=== PATIENT | male | born 1990 | race Caucasian/White ===

== ENCOUNTER 2019-02-16 16:49 | Emergency (ER) | payer BC ==
[2019-02-16] MEDS ORDERED: cefTRIAXone 500 MG in Lidocaine 1% 2 ML IM ONE (17:11)
[2019-02-16] MEDS ORDERED: Azithromycin 250 MG Tab PO STA (17:12)
--- NOTE | 2019-02-16 17:18 | EDM.PDOC ---
ED HPI GENERAL MEDICAL PROBLEM - General Chief Complaint: Genitourinary Problem Stated Complaint: STD TESTING Time Seen by Provider: 02/16/19 16:51 Source of Information: Reports: Patient History Limitations: Reports: No Limitations - History of Present Illness INITIAL COMMENTS - FREE TEXT/NARRATIVE: HISTORY AND PHYSICAL: History of present illness: Patient is a 28-year-old male who presents to the ED today with concern of penile discharge and burning with urination. Patient states he did have unprotected sex one week ago with a new partner. Patient states 2 days after the unprotected sex he began to notice some penile discharge that he states is white in color. Patient states that he also has started having burning with urination over the past few days. Patient states he has not taken anything for his symptoms. Patient denies any other symptoms or concerns. Patient denies fever, chills, chest pain, shortness of breath, or cough. Denies headache, neck stiff ness, change in vision, syncope, or near syncope. Denies nausea, vomiting, abdominal pain, diarrhea, constipation. Has not noted any blood in urine or stool. Patient has been eating and drinking appropriately. Review of systems: As per history of present illness and below otherwise all systems reviewed and negative. Past medical history: As per history of present illness and as reviewed below otherwise noncontributory. Surgical history: As per history of present illness and as reviewed below otherwise noncontributory. Social history: See social history for further information Family history: As per history of present illness and as reviewed below otherwise noncontributory. Physical exam: General: Patient is alert, oriented, and in no acute distress. Patient sitting comfortably on exam table. HEENT: Atraumatic, normocephalic, pupils equal and reactive bilaterally, negative for conjunctival pallor or scleral icterus, mucous membranes moist, TMs normal bilaterally, throat clear, neck supple, nontender, trachea midline. No drooling or trismus noted. No meningeal signs. No hot potato voice noted. Lungs: Clear to auscultation, breath sounds equal bilaterally, chest nontender. Heart: S1S2, regular rate and rhythm without overt murmur Abdomen: Soft, nondistended, nontender. Negative for masses or hepatosplenomegaly. Negative for costovertebral tenderness. Pelvis: Stable nontender. Genitourinary: Deferred. Rectal: Deferred. Skin: Intact, warm, dry. No lesions or rashes noted. Extremities: Atraumatic, negative for cords or calf pain. Neurovascular unremarkable. Neuro: Awake, alert, oriented. Cranial nerves II through XII unremarkable. Cerebellum unremarkable. Motor and sensory unremarkable throughout. Exam nonfocal. Notes: Dr. Wyman verbally involved in patient care. Discussed with patient that if he does desire full STD screening, to either get established with his primary care provider or to follow-up at the [facility]. Discussed the importance for follow-up with primary care provider. Voices understanding and is agreeable to plan of care. Denies any further questions or concerns at this time. Diagnostics: UA, gonorrhea and chlamydia Therapeutics: Rocephin, azithromycin, Pyridium Prescription: Pyridium Impression: Penile discharge Dysuria H/O high risk sexual behavior Plan: 1. If you desire full STD screening, you can get this done at [facility] or at follow up with your primary care provider. 2. Alternate ibuprofen and Tylenol as directed for pain and discomfort. 3. Follow up with her primary care provider as discussed. Return to the ED as needed and as discussed. Definitive disposition and diagnosis as appropriate pending reevaluation and review of above. Penis Pain Score (Numeric/FACES): 7 - Related Data Allergies Allergy/AdvReac Type Severity Reaction Status Date / Time zolpidem [From Ambien] Allergy Anxiety Verified 02/16/19 17:05 Home Meds: Home Meds Primidone 50 mg PO ASDIRECTED 02/16/19 [History] clonazePAM [Klonopin] 1 mg PO ASDIRECTED 02/16/19 [History] Past Medical History - Past Health History Medical/Surgical History: Denies Medical/Surgical History Psychiatric History: Reports: Anxiety, Depression - Infectious Disease History Infectious Disease History: Reports: None Social & Family History - Family History Family Medical History: Noncontributory - Tobacco Use Smoking Status *Q: Never Smoker Second Hand Smoke Exposure: No - Caffeine Use Caffeine Use: Reports: Coffee - Recreational Drug Use Recreational Drug Use: No ED ROS GENERAL - Review of Systems Review Of Systems: ROS reveals no pertinent complaints other than HPI. ED EXAM, GENERAL - Physical Exam Exam: See Below (See dictation) Course - Vital Signs Last Recorded V/S: Last Vital Signs Temp 98.6 F 02/16/19 17:07 Pulse 101 H 02/16/19 17:07 Resp 16 02/16/19 17:07 BP 167/86 H 02/16/19 17:07 Pulse Ox 97 02/16/19 17:07 - Orders/Labs/Meds Orders: Active Orders 24 hr Category Date Time Status CHLAMYDIA AND GONORRHEA BY TMA Stat Lab 02/16/19 17:10 Received CULTURE URINE [RM] Stat Lab 02/16/19 17:10 Received Labs: Laboratory Tests 02/16/19 Range/Units 17:10 Urine Color YELLOW Urine Appearance CLEAR Urine pH 7.0 (5.0-8.0) Ur Specific [place] <= 1.005 (1.001-1.035) Urine Protein NEGATIVE (NEGATIVE) mg/dL Urine Glucose (UA) NEGATIVE (NEGATIVE) mg/dL Urine Ketones NEGATIVE (NEGATIVE) mg/dL Urine Occult Blood TRACE-INTACT H (NEGATIVE) Urine Nitrite NEGATIVE (NEGATIVE) Urine Bilirubin NEGATIVE (NEGATIVE) Urine Urobilinogen 0.2 (<2.0) EU/dL Ur Leukocyte Esterase SMALL H (NEGATIVE) Urine RBC 0-2 (0-2/HPF) Urine WBC 5-10 (0-5/HPF) Ur Epithelial Cells FEW (NONE-FEW) Urine Bacteria FEW (NEGATIVE) Meds: Medications Discontinued Medications Generic Name Dose Route Start Last Admin Trade Name Cristiane PRN Reason Stop Dose Admin Azithromycin 1,000 mg 02/16/19 17:12 02/16/19 17:30 Zithromax PO 02/16/19 17:13 1,000 mg NOW STA Administration Ceftriaxone Sodium 500 mg/ 2 mls @ 2 mls/sec 02/16/19 17:11 02/16/19 17:30 Lidocaine HCl IM 02/16/19 17:12 2 mls/sec ONETIME ONE Administration Phenazopyridine HCl 200 mg 02/16/19 17:36 Pyridium PO 02/16/19 17:37 ONETIME ONE Departure - Departure Time of Disposition: 17:55 Disposition: Home, Self-Care 01 Clinical Impression: Dysuria, Penile discharge High risk sexual behavior Qualifiers: High risk sexual behavior type: unspecified Qualified Code(s): Z72.51 - High risk heterosexual behavior - Discharge Information Referrals: King Hay MD [Primary Care Provider] - Forms: ED Department Discharge Additional Instructions: The following information is given to patients seen in the emergency department who are being discharged to home. This information is to outline your options for follow-up care. We provide all patients seen in our emergency department with a follow-up referral. The need for follow-up, as well as the timing and circumstances, are variable depending upon the specifics of your emergency department visit. If you don't have a primary care physician on staff, we will provide you with a referral. We always advise you to contact your personal physician following an emergency department visit to inform them of the circumstance of the visit and for follow-up with them and/or the need for any referrals to a consulting specialist. The emergency department will also refer you to a specialist when appropriate. This referral assures that you have the opportunity for follow-up care with a specialist. All of these measure are taken in an effort to provide you with optimal care, which includes your follow-up. Under all circumstances we always encourage you to contact your private physician who remains a resource for coordinating your care. When calling for follow-up care, please make the office aware that this follow-up is from your recent emergency room visit. If for any reason you are refused follow-up, please contact the [facility] at and asked to speak to the emergency department charge nurse. [facility] [address] [place], [place] [id number] [place] [address] 1. If you desire full STD screening, you can get this done at [facility] or at follow up with your primary care provider. 2. Alternate ibuprofen and Tylenol as directed for pain and discomfort. 3. Follow up with her primary care provider as discussed. Return to the ED as needed and as discussed. - My Orders Last 24 Hours: My Active Orders 02/16/19 17:10 CHLAMYDIA AND GONORRHEA BY TMA Stat CULTURE URINE [RM] Stat - Assessment/Plan Last 24 Hours: My Active Orders 02/16/19 17:10 CHLAMYDIA AND GONORRHEA BY TMA Stat CULTURE URINE [RM] Stat
[2019-02-16] MEDS ORDERED: Phenazopyridine 200 MG Tab PO ONE (17:36)
== END 2019-02-16 18:18 | disposition home or self-care (01) ==
LOC: MW.ED 16:49
DX: R36.9 Urethral discharge, unspecified (principal); R30.0 Dysuria; Z72.51 High risk heterosexual behavior; Z88.8 Allergy status to other drugs, medicaments and biological substances
CPT/HCPCS: 81001; 87086; 87491; 87591; 96372; 99283; A9270; J0696; J2001